=== PATIENT | female | born 1970 ===

== ENCOUNTER → 2021-01-01 09:40 | Outpatient (BNVA) | payer BC, SELFPAY | PROVIDERS: Visit Provider Internal Medicine ==

== ENCOUNTER 2021-02-07 06:05 | Outpatient (REF) | payer BC, SELFPAY | END 2021-02-07 06:06 | disposition home or self-care (01) | LOC: HO.RADIR 06:05 | PROVIDERS: Visit Provider Internal Medicine | DX: Z13.89 Encounter for screening for other disorder (principal) ==